=== PATIENT | male | born 1945 | race African-American/Black ===

== ENCOUNTER 2020-06-07 20:43 | Inpatient (IN) | payer BC, MEDICARE, OTHER ==
[2020-06-07] MEDS ORDERED: Acetaminophen 500 MG TAB ONE (21:01)
[2020-06-07 21:23] LABS: #Eosinphils 0.1 thou/uL (0.0-0.7); #Monocytes 0.8 thou/uL (0.11-0.59); #Neutrophils 8.5 thou/uL (1.40-6.50); %Basophils 0.4 % (0.0-1.0); %Eosinophils 0.6 % (0.0-10.0); %Lymphocytes 9.6 % (21.0-51.0); %Monocytes 7.5 % (0.0-10.0); %Neutrophils 81.9 % (42.0-75.0); Hemoglobin 13.9 g/dL (14.0-18.0); Mean Corpuscular HGB CONC 34.7 g/dL (32.0-36.0); Mean Corpuscular Hemoglobin 30.4 pg (27.0-31.0); Mean Corpuscular Volume 87.7 fL (78.0-98.0); Mean Platelet Volume 8.7 fL (7.4-10.4); Platelet Count 178 thou/uL (130-400); RBC Distribution Width 11.3 % (11.5-14.5); Red Blood Cell (RBC) Count 4.59 mill/uL (4.70-6.10); White Blood Cell (WBC) Count 10.3 thou/uL (4.8-10.8)
--- NOTE | 2020-06-07 21:25 | RAD ---
XR Chest 1 View Portable History: Fever Comparison: None. Findings: Lungs are hypoinflated with vascular crowding of spurious enlargement of the cardiac silhou ette. No pneumothorax. No effusion. No acute osseous abnormality. Impression: Lung hypoinflation with crowding of the pulmonary vasculature. If clinically warranted, r epeat examination with full inspiratory effort recommended.
[2020-06-07 21:43] LABS: ALT (SGPT) 26 U/L (8-55); AST (SGOT) 19 U/L (5-34); Albumin 3.7 g/dL (3.4-4.8); Alkaline Phosphatase 57 U/L (40-110); Anion Gap 13 mmol/L (10-20); BUN (Urea Nitrogen) 22 mg/dL (8.4-25.7); Bilirubin, Total 0.7 mg/dL (0.2-1.2); Calc. Creatinine Clearance 0 mL/min (70-130); Calcium 8.4 mg/dL (7.8-10.44); Carbon Dioxide 24 mmol/L (23-31); Chloride 101 mmol/L (98-107); Estimated GFR-MDRD 72; Globulin 3.5 g/dL (2.4-3.5); Glucose 207 mg/dL (83-110); Potassium 4.4 mmol/L (3.5-5.1); Protein, Total 7.2 g/dL (5.8-8.1); Sodium 134 mmol/L (136-145)
[2020-06-07 22:03] LABS: Bacteria/HPF 1+ HPF (None Seen); Bilirubin Negative (Negative); Blood, Urine 1+ (Negative); Clarity Turbid (Clear); Glucose, Urine (Dipstick) 300 mg/dL (Negative); Ketone, Urine Negative (Negative); Leukocyte 500 Leu/uL (Negative); Nitrite Negative (Negative); Protein, Urine (Dipstick) 300 mg/dL (Neg-Trace); Specific Gravity, Urine 1.025 (1.002-1.036); Urobilinogen Normal mg/dL (Less than 2); WBC/HPF 21-50 HPF (0-3)
[2020-06-07] MEDS ORDERED: cefTRIAXone\\ROCEPHIN 2 GM VIAL ONE (23:05)
[2020-06-08] MEDS ORDERED: Dextrose 5% in Water 1,000 ML IV PRN (00:39)
[2020-06-08] MEDS ORDERED: Dextrose 50% Abboject 50 ML SYRINGE SLOW IVP PRN (00:39)
[2020-06-08] MEDS ORDERED: Ondansetron PF 4 MG/2 ML Vial IVP PRN (00:45)
[2020-06-08] MEDS ORDERED: Ondansetron ODT 4 MG TAB SL PRN (00:45)
[2020-06-08] MEDS ORDERED: Acetaminophen 325 MG TAB PO PRN (00:45)
--- NOTE | 2020-06-08 00:46 | PDOC.HHP ---
Hospitalist HPI - History of Present Illness weakness chills History of Present Illness: Case of an 75y/o male with pmhx of DM, htn and hypercholesterolemia who present to hospital due to chills and weaknes. patient reports that he was on his usual state of health until yesterday when he started with generalize weakness, chills fever and anorexia for which he was brought to hospital for evaluation. patient denies diarrhea cough or dysuria. at the ED patient was evaluated and found to have a uti for which hospitalist was called for further evaluation and management. Hospitalist ROS - Review of Systems All other systems reviewed; all pertinent +/- noted in HPI/Subj Hospitalist History - Past Surgical History Past Surgical History: reports: no pertinent history - Family History Family History: reports: cancer, diabetes mellitus, hypertension - Social History Smoking Status: Never smoker Alcohol: reports: None Drugs: reports: none Living Situation: With Family - Exam General Appearance: NAD, awake alert, ill appearing Eye: PERRL, anicteric sclera ENT: normocephalic atraumatic, no oropharyngeal lesions Neck: supple, symmetric, no JVD, no thyromegaly Heart: RRR, no murmur, no gallops Respiratory: CTAB, no wheezes, no rales, no ronchi Gastrointestinal: soft, non-distended, normal bowel sounds Gastrointestinal - other findings: suprapubic tenderness Extremities: no cyanosis, no clubbing, no edema Skin: normal turgor, no lesions, no rashes Neurological: cranial nerve grossly intact, normal sensation to touch, no weakness Musculoskeletal: normal tone, normal strength, no muscle wasting Psychiatric: normal affect, normal behavior, A&O x 3, oriented to person Hospitalist Results - Labs Result Diagrams: 06/07/20 21:14 06/07/20 21:14 Lab results: WBC 10.3 thou/uL (4.8-10.8) 06/07/20 21:14 Hgb 13.9 g/dL (14.0-18.0) L 06/07/20 21:14 Hct 40.2 % (42.0-52.0) L 06/07/20 21:14 MCV 87.7 fL (78.0-98.0) 06/07/20 21:14 Plt Count 178 thou/uL (130-400) 06/07/20 21:14 Neutrophils % 81.9 % (42.0-75.0) H 06/07/20 21:14 Sodium 134 mmol/L (136-145) L 06/07/20 21:14 Potassium 4.4 mmol/L (3.5-5.1) 06/07/20 21:14 Chloride 101 mmol/L (98-107) 06/07/20 21:14 Carbon Dioxide 24 mmol/L (23-31) 06/07/20 21:14 BUN 22 mg/dL (8.4-25.7) 06/07/20 21:14 Creatinine 1.02 mg/dL (0.7-1.3) 06/07/20 21:14 Glucose 207 mg/dL (83-110) H 06/07/20 21:14 Lactic Acid 1.6 mmol/L (0.5-2.2) 06/07/20 21:14 Calcium 8.4 mg/dL (7.8-10.44) 06/07/20 21:14 Total Bilirubin 0.7 mg/dL (0.2-1.2) 06/07/20 21:14 AST 19 U/L (5-34) 06/07/20 21:14 ALT 26 U/L (8-55) 06/07/20 21:14 Alkaline Phosphatase 57 U/L (40-110) 06/07/20 21:14 Serum Total Protein 7.2 g/dL (5.8-8.1) 06/07/20 21:14 Albumin 3.7 g/dL (3.4-4.8) 06/07/20 21:14 Urine Ketones Negative mg/dL (Negative) 06/07/20 21:45 Urine Blood 1+ (Negative) A 06/07/20 21:45 Urine Nitrite Negative (Negative) 06/07/20 21:45 Ur Leukocyte Esterase 500 Amor/uL (Negative) A 06/07/20 21:45 Urine RBC 4-6 HPF (0-3) A 06/07/20 21:45 Urine WBC 21-50 HPF (0-3) A 06/07/20 21:45 Ur Squamous Epith Cells 7-10 HPF (0-3) A 06/07/20 21:45 Urine Bacteria 1+ HPF (None Seen) A 06/07/20 21:45 - Radiology Interpretation Chest x-ray Status: image reviewed by me, report reviewed by me Additional Comment: XR Chest 1 View Portable History: Fever Comparison: None. Findings: Lungs are hypoinflated with vascular crowding of spurious enlargement of the cardiac silhou ette. No pneumothorax. No effusion. No acute osseous abnormality. Impression: Lung hypoinflation with crowding of the pulmonary vasculature. If clinically warranted, r epeat examination with full inspiratory effort recommended. Hospitalist H&P A/P - Problem (1) UTI (urinary tract infection) Status: Acute (2) HTN (hypertension) Code(s): I10 - ESSENTIAL (PRIMARY) HYPERTENSION Status: Acute (3) Diabetes Code(s): E11.9 - TYPE 2 DIABETES MELLITUS WITHOUT COMPLICATIONS Status: Acute (4) Hypercholesterolemia Code(s): E78.00 - PURE HYPERCHOLESTEROLEMIA, UNSPECIFIED Status: Acute - Plan Plan: 75y/o male with the stated pmhx who presents with uti uti - fever, chills, u/a consistent with uti, L shift - started ivfs - rocephin - f/u u/c + b/c htn - continue home meds diabetes - ss+acc - lantus hs hypercholesterolemia - continue statin
[2020-06-08] MEDS: Sodium Chloride 0.9% 1,000 ML IV SCH ×4 (01:00→20:01)
[2020-06-08 01:42] VITALS: BMI 30.2
[2020-06-08 05:54] LABS: #Lymphocytes 1.2 thou/uL (1.20-3.40); #Monocytes 0.8 thou/uL (0.11-0.59); %Basophils 0.1 % (0.0-1.0); %Eosinophils 0.2 % (0.0-10.0); %Neutrophils 77.8 % (42.0-75.0); Hemoglobin 13.3 g/dL (14.0-18.0); Mean Corpuscular HGB CONC 35.3 g/dL (32.0-36.0); Mean Corpuscular Hemoglobin 30.3 pg (27.0-31.0); Mean Corpuscular Volume 85.9 fL (78.0-98.0); Mean Platelet Volume 8.6 fL (7.4-10.4); Platelet Count 165 thou/uL (130-400); RBC Distribution Width 11.3 % (11.5-14.5); Red Blood Cell (RBC) Count 4.38 mill/uL (4.70-6.10)
[2020-06-08 06:24] LABS: ALT (SGPT) 23 U/L (8-55); AST (SGOT) 16 U/L (5-34); Albumin 3.3 g/dL (3.4-4.8); Alkaline Phosphatase 48 U/L (40-110); Anion Gap 11 mmol/L (10-20); BUN (Urea Nitrogen) 16 mg/dL (8.4-25.7); Bilirubin, Total 0.6 mg/dL (0.2-1.2); Calc. Creatinine Clearance 105 mL/min (70-130); Calcium 8.1 mg/dL (7.8-10.44); Carbon Dioxide 24 mmol/L (23-31); Estimated GFR-MDRD Greater than 90; Globulin 3.2 g/dL (2.4-3.5); Glucose 86 mg/dL (83-110); Protein, Total 6.5 g/dL (5.8-8.1)
[2020-06-08] MEDS: Acetaminophen 325 MG TAB PO PRN ×2 (06:36→19:59)
[2020-06-08 06:53] LABS: Chloride 103 mmol/L (98-107); Potassium 3.6 mmol/L (3.5-5.1); Sodium 134 mmol/L (136-145)
[2020-06-08 07:36] LABS: CRP (Inflammatory) 2.79 mg/dL (= or < 0.5); Magnesium 1.7 mg/dL (1.6-2.6)
[2020-06-08] MEDS: Lisinopril 20 MG TAB PO SCH (08:37)
[2020-06-08] MEDS: Enoxaparin Sodium 40 MG/0.4 ML SYRINGE SC SCH (08:38)
[2020-06-08] MEDS ORDERED: Magnesium 2 GM/50 ML 2 GM in Premix Bag 1 BAG IVPB SCH (09:45)
--- NOTE | 2020-06-08 11:28 | CT ---
CT abdomen and pelvis noncontrast HISTORY: Flank pain. FINDINGS: Each renal collecting system, ureter, and urinary bladder are decompressed. A 0.2 cm calcul us is present within a nondilated calyx at the superior pole left kidney. Prominent degenerative changes throughout the lumbar spine. S shaped rotatory scoliotic curvature. Th ere is calcification throughout the arterial structures. Lack of IV contrast limits evaluation of the soft tissues. No evidence of bowel obstruction or inflam mation. Small amount of abdominal fat protrudes into an umbilical hernia that does not contain bowel. Small pockets of gas within the right abdominal subcutaneous tissues are likely related to rec ent injection. IMPRESSION : Tiny nonobstructing left renal calculus. Atherosclerosis.
[2020-06-08] MEDS: HumaLOG 300 UNITS/3 ML VIAL SC PRN (11:49)
[2020-06-08 16:15] LABS: SARS-CoV-2 MS2 Positive; SARS-CoV-2 N Gene Negative; SARS-CoV-2 S Gene Negative; SARS-CoV-2 by NAA Not Detected (NotDetected); SARS-CoV-2 orf1ab Negative
[2020-06-08] MEDS: Atorvastatin Calcium 10 MG TAB PO SCH (19:59)
[2020-06-08] MEDS ORDERED: Insulin Glargine 50 UNITS in Pre-Filled Syringe 1 EACH SC SCH (21:00)
[2020-06-08] MEDS ORDERED: Insulin Glargine 20 UNITS in Pre-Filled Syringe 1 EACH SC SCH (21:00)
[2020-06-09] MEDS: cefTRIAXone\\ROCEPHIN 2 GM in Sodium Chloride 0.9% 100 ML IVPB SCH (00:57)
[2020-06-09 06:21] LABS: #Eosinphils 0.2 thou/uL (0.0-0.7); #Lymphocytes 1.7 thou/uL (1.20-3.40); #Monocytes 0.7 thou/uL (0.11-0.59); #Neutrophils 3.2 thou/uL (1.40-6.50); %Basophils 0.7 % (0.0-1.0); %Eosinophils 3.3 % (0.0-10.0); %Lymphocytes 29.6 % (21.0-51.0); %Monocytes 12.4 % (0.0-10.0); %Neutrophils 54.1 % (42.0-75.0); Mean Corpuscular HGB CONC 34.4 g/dL (32.0-36.0); Mean Corpuscular Hemoglobin 30.2 pg (27.0-31.0); Mean Corpuscular Volume 87.8 fL (78.0-98.0); Mean Platelet Volume 8.7 fL (7.4-10.4); Platelet Count 164 thou/uL (130-400); RBC Distribution Width 11.4 % (11.5-14.5); Red Blood Cell (RBC) Count 4.32 mill/uL (4.70-6.10); White Blood Cell (WBC) Count 5.9 thou/uL (4.8-10.8)
[2020-06-09 06:41] LABS: ALT (SGPT) 21 U/L (8-55); AST (SGOT) 19 U/L (5-34); Albumin 3.3 g/dL (3.4-4.8); Alkaline Phosphatase 50 U/L (40-110); Anion Gap 10 mmol/L (10-20); BUN (Urea Nitrogen) 11 mg/dL (8.4-25.7); Bilirubin, Total 0.4 mg/dL (0.2-1.2); Calc. Creatinine Clearance 97 mL/min (70-130); Calcium 7.9 mg/dL (7.8-10.44); Carbon Dioxide 27 mmol/L (23-31); Chloride 105 mmol/L (98-107); Estimated GFR-MDRD Greater than 90; Globulin 3.3 g/dL (2.4-3.5); Glucose 145 mg/dL (83-110); Potassium 3.9 mmol/L (3.5-5.1); Protein, Total 6.6 g/dL (5.8-8.1); Sodium 138 mmol/L (136-145)
[2020-06-09] MEDS: Lisinopril 20 MG TAB PO SCH (08:35)
[2020-06-09] MEDS: Enoxaparin Sodium 40 MG/0.4 ML SYRINGE SC SCH (08:37)
[2020-06-09] MEDS: Saccharomyces boulardii 250 MG CAP PO SCH (08:37)
[2020-06-09] MEDS: HumaLOG 300 UNITS/3 ML VIAL SC PRN ×2 (11:57→16:09)
--- NOTE | 2020-06-09 14:30 | PDOC.HOSPP ---
- Subjective Encounter Date: 06/09/20 Encounter Time: 12:00 Subjective: Patient seen and examined for encephalopathy due to UTI. Mentation improved. Denies any fever, chills or abdominal pain. Had post void residual over 300 earlier today that improved with repeated voiding. - Objective Vital Signs & Weight: Vital Signs (12 hours) Temp Pulse Resp BP BP BP Pulse Ox 06/09/20 11:30 98.5 F 68 16 116/84 96 06/09/20 08:35 165/80 H 06/09/20 08:05 98.3 F 69 20 157/67 H 98 06/09/20 06:10 162/66 H 06/09/20 05:03 98.0 F 67 18 162/74 H 96 Weight Admit Weight 193 lb 4 oz Weight 193 lb 4 oz I&O: 06/08/20 06/09/20 06/10/20 06:59 06:59 06:59 Intake Total 1100 1100 Output Total 1575 Balance 1100 -475 Result Diagrams: 06/09/20 05:46 06/09/20 05:46 Additional Labs: 06/07/20 21:14: Sodium 134 L, Albumin/Globulin Ratio 1.1 L 06/07/20 21:14: RBC 4.59 L, Hgb 13.9 L, Hct 40.2 L, RDW 11.3 L, Neutrophils % 81.9 H, Lymphocytes % 9.6 L, Neutrophils # 8.5 H, Lymphocytes # 1.0 L, Monocytes # 0.8 H 06/07/20 21:45: Urine Clarity Turbid A, Urine Protein 300 A, Urine Blood 1+ A, Ur Leukocyte Esterase 500 A, Urine RBC 4-6 A, Urine WBC 21-50 A, Ur Squamous Epith Cells 7-10 A, Urine Bacteria 1+ A 06/08/20 05:33: Sodium 134 L, Albumin 3.3 L, Albumin/Globulin Ratio 1.0 L 06/08/20 05:33: RBC 4.38 L, Hgb 13.3 L, Hct 37.6 L, RDW 11.3 L, Neutrophils % 77.8 H, Lymphocytes % 13.0 L, Neutrophils # 7.0 H, Monocytes # 0.8 H 06/08/20 05:33: C-Reactive Protein 2.79 H 06/09/20 05:46: RBC 4.32 L, Hgb 13.0 L, Hct 37.9 L, RDW 11.4 L, Monocytes % 12.4 H, Monocytes # 0.7 H 06/09/20 05:46: Albumin 3.3 L, Albumin/Globulin Ratio 1.0 L Microbiology - Entire Visit 06/07/20 21:45 Urine voided Urine Culture - Final Beta-hemolytic Streptococcus 06/07/20 21:13 Venous blood - Right Arm Blood Culture - Preliminary NO GROWTH AT 48 HOURS 06/07/20 21:13 Venous blood - Right Arm Blood Culture - Preliminary NO GROWTH AT 48 HOURS Radiology Reviewed by me: Yes (CT abdomenno obstructive uropathy) Hospitalist ROS - Review of Systems Respiratory: denies: cough, dry, shortness of breath, hemoptysis, SOB with excertion, pleuritic pain, sputum, wheezing, other Cardiovascular: denies: chest pain, palpitations, orthopnea, paroxysmal noc. dyspnea, edema, light headedness, other Gastrointestinal: denies: nausea, vomiting, abdominal pain, diarrhea, co nstipation, melena, hematochezia, other All other systems reviewed; all pertinent +/- noted in HPI/Subj - Medication Medications: Active Medications Generic Name Dose Route Start Last Admin Trade Name Freq PRN Reason Stop Dose Admin Acetaminophen 650 mg 06/08/20 00:39 06/08/20 19:59 Acetaminophen 325 Mg Tab PO 650 mg Q4H PRN Administration Headache/Fever/Mild Pain (1-3) Atorvastatin Calcium 10 mg 06/08/20 21:00 06/08/20 19:59 Atorvastatin Calcium 10 Mg Tab PO 10 mg HS LETY Administration Enoxaparin Sodium 40 mg 06/08/20 09:00 06/09/20 08:37 Enoxaparin Sodium 40 Mg/0.4 Ml Syringe SC 40 mg 0900 LETY Administration Sodium Chloride 1,000 mls @ 50 mls/hr 06/08/20 00:45 06/08/20 20:01 Normal Saline 0.9% IV Not Given .Q20H LETY Ceftriaxone Sodium 2 gm/ 100 mls @ 200 mls/hr 06/08/20 23:00 06/09/20 00:57 Sodium Chloride IVPB 100 mls 2300 LETY Administration Insulin Human Lispro 0 units 06/08/20 00:39 06/09/20 11:57 Humalog 300 Units/3 Ml Vial SC 2 unit .MILD SLIDING SCALE PRN Administration Mild Correctional Scale Lisinopril 20 mg 06/08/20 09:00 06/09/20 08:35 Lisinopril 20 Mg Tab PO 20 mg DAILY LETY Administration Saccharomyces Boulardii 250 mg 06/09/20 09:00 06/09/20 08:37 Saccharomyces Boulardii 250 Mg Cap PO 250 mg DAILY LETY Administration - Exam General Appearance: NAD Neck: supple, no JVD Heart: RRR, no gallops, no rubs, normal peripheral pulses Respiratory: no wheezes, no rales, no ronchi, normal chest expansion Gastrointestinal: soft, non-tender, non-distended, normal bowel sounds Extremities: no cyanosis, no clubbing Skin: normal turgor, no lesions Neurological: no new deficit Psychiatric: normal affect, A&O x 3 Hosp A/P - Plan DVT proph w/SCDs #Toxic metabolic encephalopathy secondary to UTIPOAprobably secondary to urinary retention. Will continue IV ceftriaxone. Neutrophilia improving. U rology evaluation as outpatient is recommended. Await final urine culture. Will discuss with infectious disease. CT abdomen negative for obstructive uropathy. #Obesity with a BMI of 30.3lifestyle modification emphasized. #Hypertensionwe will continue lisinopril. IV fluid will be discontinued. #Hyperlipidemiacontinue statins #Diabetes mellitus type 2. Patient was hypoglycemic today with blood sugars of 67. He received 20 units of Lantus last night. Please note that he takes 50 units of Lantus nightly. Will hold Lantus for now. #Hypokalemia/hypomagnesemia/hyponatremiawe will replace #Chronic anemia probably due to nutritional deficiencyoutpatient follow-up recommended. #Nonobstructing renal calculi Probably discharge in 24 to 48 hours if cultures are available.
[2020-06-09] MEDS ORDERED: Magnesium 2 GM/50 ML 2 GM in Premix Bag 1 BAG IVPB SCH (14:45)
--- NOTE | 2020-06-09 16:34 | CON ---
DATE OF CONSULTATION: 06/09/2020 REASON FOR CONSULTATION: Fever. HISTORY OF PRESENT ILLNESS: A 75-year-old with history of hypertension and type 2 diabetes, who was in his usual state until Tuesday when he developed chills and fever up to 103. He did not have any other symptoms. The only thing that was close to a symptom was a perceived urgency to urinate, but he did not have any dysuria. He denied any headaches. No sore throat, odynophagia, or dysphagia. No vomiting, hematemesis, or melena. No cough or sputum production or chest pain. No shortness of breath. No abdominal pain or back pain. No joint symptoms. No skin disorder. MEDICAL HISTORY: 1. Type 2 diabetes. 2. Hypertension. 3. Neuropathy. SOCIAL HISTORY: Retired. Lives in the area. Never smoker. He used to work building cabinets and windows. ALLERGIES: HE HAS NO KNOWN DRUG ALLERGIES. MEDICATIONS: 1. Zocor. 2. Quinapril. 3. Clonazepam. 4. Combination diabetes medication. Currently, he is receiving Rocephin in addition to the above as well as enoxaparin. FAMILY HISTORY: Includes diabetes. PHYSICAL EXAMINATION: VITAL SIGNS: His T-max 102 on arrival and he seems to be defervescing steadily since admission, BP 116/84, heart rate 68, respiratory rate 16, and O2 saturation 96 on room air. GENERAL: He does appear in distress, sitting in the bed when I arrived. He is awake and oriented. in the room with him. SKIN: A few areas of stasis dermatitis in the lower extremities, but no cellulitis. His feet are okay. There is without any wounds noted. No lymphadenopathy. HEENT: Ocular movements conjugate. Sclerae white. Pupils are equal. Conjunctivae normal. Oral cavity with a few missing teeth, remainder ones with some decay and gums are in pretty good shape. Oral mucosa normal. NECK: Supple. No jugular vein distention. LUNGS: With faint inspiratory crackles, right and left bases. HEART: S1 and S2. Regular rate. No S3 or S4. ABDOMEN: Soft, not distended or tender. No ascites. Question of bladder distention. EXTREMITIES: No joint inflammatory activity. Moves extremities equally. NEUROLOGIC: Nonfocal including cognitive function. LABORATORY DATA: White cell count started at 10.3, down to 5.9; hemoglobin 13.9 and 13; platelets are 178; neutrophil percentage 81%, down to 54 now after treatment. Chemistry with normal chemistry including liver panel except for hyperglycemia, which is mild. Albumin was 3.3, which is down from admission as expected. Urinalysis was very abnormal with 21 to 50 wbc's, 500 leukocyte esterase, 300 protein. COVID was not detected. The patient had an abdomen and pelvis CT, which showed a tiny nonobstructing left renal calculus, this was a stone protocol study without contrast. The bladder appeared decompressed. Bowel appeared okay. Chest x-ray with hypoinflation. ASSESSMENT: 1. Type 2 diabetes. 2. Hypertension. 3. New onset of fever of unknown primary site with abnormal urinalysis. 4. Some faint findings in the chest x-ray. 5. Abnormal lung examination. DISCUSSION: The most likely scenario here is an invasive UTI. The lung findings are not correlated with evidence of infiltrate on CT scan, so it seems like Rocephin is working its way and urine culture preliminary results indicate mixed culture. The blood culture thus far no growth, but I would be surprised if turns positive right tomorrow. We will wait for the final results. Hopefully, we will be able to transition to oral therapy. Does not appear that he is retaining urine, but evidently the prostate would be a one of the concerns here and eventually will need a workup of his prostate gland with PSA and rectal exam, but that can be done in the outpatient setting. I do not see evidence of an alternate site at this moment. Job ID: [id number]
[2020-06-09] MEDS ORDERED: Potassium Chloride 20 MEQ TAB PO SCH (17:00)
[2020-06-09] MEDS: Atorvastatin Calcium 10 MG TAB PO SCH (20:43)
[2020-06-10] MEDS: cefTRIAXone\\ROCEPHIN 2 GM in Sodium Chloride 0.9% 100 ML IVPB SCH ×2 (00:45→21:50)
[2020-06-10] MEDS: Saccharomyces boulardii 250 MG CAP PO SCH (08:59)
[2020-06-10] MEDS: Enoxaparin Sodium 40 MG/0.4 ML SYRINGE SC SCH (08:59)
[2020-06-10] MEDS: Lisinopril 20 MG TAB PO SCH (09:00)
[2020-06-10] MEDS: Insulin Glargine 10 UNITS in Pre-Filled Syringe 1 EACH SC SCH (09:01)
[2020-06-10] MEDS: clonazePAM 1 MG TAB PO PRN ×2 (11:00→21:48)
[2020-06-10] MEDS: HumaLOG 300 UNITS/3 ML VIAL SC PRN ×2 (11:45→16:17)
[2020-06-10] MEDS ORDERED: Amlodipine 5 MG TAB PO SCH (15:45)
[2020-06-10] MEDS ORDERED: cloNIDine 0.1 MG TAB PO PRN (15:51)
--- NOTE | 2020-06-10 17:20 | PDOC.HOSPP ---
- Subjective Encounter Date: 06/10/20 Encounter Time: 09:30 Subjective: Patient seen and examined for sepsis due to UTI. Feels generally weak and fatigued. Did not sleep well last night. Anxious. No chest pain, fever, nausea or dysuria. - Objective Vital Signs & Weight: Vital Signs (12 hours) Temp Pulse Resp BP BP BP Pulse Ox 06/10/20 16:17 65 160/69 H 06/10/20 15:52 97.8 F 63 20 172/83 H 96 06/10/20 11:50 69 152/72 H 06/10/20 10:55 68 204/95 H 06/10/20 09:33 97 06/10/20 09:00 190/65 H 06/10/20 07:16 98.0 F 62 20 176/68 H 97 Weight Admit Weight 193 lb 4 oz Weight 193 lb 4 oz I&O: 06/09/20 06/10/20 06/11/20 06:59 06:59 06:59 Intake Total 1100 2350 360 Output Total 1575 2100 Balance -475 250 360 Result Diagrams: 06/09/20 05:46 06/09/20 05:46 Additional Labs: 06/09/20 05:46: RBC 4.32 L, Hgb 13.0 L, Hct 37.9 L, RDW 11.4 L, Monocytes % 12.4 H, Monocytes # 0.7 H 06/09/20 05:46: Albumin 3.3 L, Albumin/Globulin Ratio 1.0 L Microbiology - Entire Visit 06/07/20 21:13 Venous blood - Right Arm Blood Culture - Preliminary Gram Negative Ed[place] 06/07/20 21:45 Urine voided Urine Culture - Final Beta-hemolytic Streptococcus 06/07/20 21:13 Venous blood - Right Arm Blood Culture - Preliminary NO GROWTH AT 48 HOURS Hospitalist ROS - Review of Systems Respiratory: denies: cough, dry, shortness of breath, hemoptysis, SOB with excertion, pleuritic pain, sputum, wheezing, other Cardiovascular: denies: chest pain, palpitations, orthopnea, paroxysmal noc. dyspnea, edema, light headedness, other - Medication Medications: Active Medications Generic Name Dose Route Start Last Admin Trade Name Freq PRN Reason Stop Dose Admin Acetaminophen 650 mg 06/08/20 00:39 06/08/20 19:59 Acetaminophen 325 Mg Tab PO 650 mg Q4H PRN Administration Headache/Fever/Mild Pain (1-3) Amlodipine Besylate 5 mg 06/10/20 15:45 06/10/20 16:17 Amlodipine 5 Mg Tab PO 06/10/20 17:45 5 mg NOW LETY Administration Atorvastatin Calcium 10 mg 06/08/20 21:00 06/09/20 20:43 Atorvastatin Calcium 10 Mg Tab PO 10 mg HS LETY Administration Clonazepam 1 mg 06/08/20 01:26 06/10/20 11:00 Clonazepam 1 Mg Tab PO 1 mg BIDPRN PRN Administration anxiety Enoxaparin Sodium 40 mg 06/08/20 09:00 06/10/20 08:59 Enoxaparin Sodium 40 Mg/0.4 Ml Syringe SC 40 mg 0900 LETY Administration Ceftriaxone Sodium 2 gm/ 100 mls @ 200 mls/hr 06/08/20 23:00 06/10/20 00:45 Sodium Chloride IVPB 100 mls 2300 LETY Administration Insulin Glargine 10 units/ 0.1 mls @ 0 mls/hr 06/10/20 09:00 06/10/20 09:01 Miscellaneous Medication SC 0.1 mls QAM LETY Administration Insulin Human Lispro 0 units 06/08/20 00:39 06/10/20 16:17 Humalog 300 Units/3 Ml Vial SC 3 unit .MILD SLIDING SCALE PRN Administration Mild Correctional Scale Lisinopril 20 mg 06/08/20 09:00 06/10/20 09:00 Lisinopril 20 Mg Tab PO 20 mg DAILY LETY Administration Saccharomyces Boulardii 250 mg 06/09/20 09:00 06/10/20 08:59 Saccharomyces Boulardii 250 Mg Cap PO 250 mg DAILY LTEY Administration - Exam General Appearance: ill appearing Heart: RRR, no gallops Respiratory: no wheezes, no ronchi Gastrointestinal: non-tender, non-distended, normal bowel sounds Extremities: no cyanosis, no clubbing Neurological: no new deficit Psychiatric: normal affect, A&O x 3 Hosp A/P - Plan 75-year-old male with diabetes mellitus type 2, hypertension and hyperlipidemia presented to the hospital on 06/08 with generalized weakness with chills. His work-up was consistent with urinary tract infection. Post void residuals were elevated. However patient is able to empty his bladder without any need of catheterization. Left shift is gradually improving. Urine culturebeta- hemolytic Streptococcus. Blood culture 1 of 2 gram-negative edmar. Started on ceftriaxone on 06/08. CT abdomen negative for obstructive uropathy. Patient was evaluated by infectious disease #Toxic metabolic encephalopathymultifactorialimproving #Urinary tract infection probably secondary to urinary retentionwe will continue ceftriaxone 2 g daily. Await final sensitivities from blood culture. Urology evaluation as outpatient #Obesity with a BMI of 30.3lifestyle modification emphasized. #Hypertensionuncontrolled. Add amlodipine. Continue current dose of lisinopril. #Hyperlipidemiacontinue statins #Diabetes mellitus type 2.Continue 10 units Lantus daily due to episodes of hypoglycemia this admission. Please note that patient takes 50 units of Lantus daily at home #Hypokalemia/hypomagnesemia/hyponatremiareplaced #Chronic anemia probably due to nutritional deficiencyoutpatient follow-up recommended. #Nonobstructing renal calculiprimary care physician to follow #DVT prophylaxiscontinue Lovenox 40 mg daily #Discharge planningawait blood cultures. Will discuss with infectious disease.
[2020-06-10] MEDS: Atorvastatin Calcium 10 MG TAB PO SCH (21:45)
[2020-06-11 06:12] LABS: #Eosinphils 0.3 thou/uL (0.0-0.7); #Lymphocytes 1.8 thou/uL (1.20-3.40); #Monocytes 0.5 thou/uL (0.11-0.59); #Neutrophils 2.5 thou/uL (1.40-6.50); %Basophils 0.4 % (0.0-1.0); %Eosinophils 5.2 % (0.0-10.0); %Lymphocytes 35.7 % (21.0-51.0); %Monocytes 10.6 % (0.0-10.0); %Neutrophils 48.2 % (42.0-75.0); Hemoglobin 13.5 g/dL (14.0-18.0); Mean Corpuscular HGB CONC 34.8 g/dL (32.0-36.0); Mean Corpuscular Volume 86.1 fL (78.0-98.0); Mean Platelet Volume 8.7 fL (7.4-10.4); Platelet Count 206 thou/uL (130-400); RBC Distribution Width 11.2 % (11.5-14.5); Red Blood Cell (RBC) Count 4.52 mill/uL (4.70-6.10); White Blood Cell (WBC) Count 5.1 thou/uL (4.8-10.8)
[2020-06-11 06:37] LABS: ALT (SGPT) 36 U/L (8-55); AST (SGOT) 32 U/L (5-34); Albumin 3.5 g/dL (3.4-4.8); Alkaline Phosphatase 54 U/L (40-110); Anion Gap 11 mmol/L (10-20); BUN (Urea Nitrogen) 10 mg/dL (8.4-25.7); Bilirubin, Total 0.5 mg/dL (0.2-1.2); Calc. Creatinine Clearance 102 mL/min (70-130); Calcium 8.8 mg/dL (7.8-10.44); Carbon Dioxide 25 mmol/L (23-31); Chloride 105 mmol/L (98-107); Estimated GFR-MDRD Greater than 90; Globulin 3.6 g/dL (2.4-3.5); Glucose 180 mg/dL (83-110); Potassium 4.2 mmol/L (3.5-5.1); Protein, Total 7.1 g/dL (5.8-8.1); Sodium 137 mmol/L (136-145)
[2020-06-11] MEDS: Lisinopril 20 MG TAB PO SCH (08:48)
[2020-06-11] MEDS: Amlodipine 5 MG TAB PO SCH (08:48)
[2020-06-11] MEDS: Enoxaparin Sodium 40 MG/0.4 ML SYRINGE SC SCH (08:49)
[2020-06-11] MEDS: Saccharomyces boulardii 250 MG CAP PO SCH (08:49)
[2020-06-11] MEDS: Insulin Glargine 10 UNITS in Pre-Filled Syringe 1 EACH SC SCH (08:49)
--- NOTE | 2020-06-11 11:50 | PQF ---
CLINICAL DOCUMENTATION CLARIFICATION FORM: Dear Dr. HITESH RAGLAND Date: 06-11-20 Please exercise your independent, professional judgment in responding to the clarification form. Clinical indicators are provided on the bottom of this form for your review. Diagnosis: SEPSIS Present on Admission (POA): [x ] Yes [ ] No [ ] Unable to determine For continuity of documentation, please document condition throughout progress notes and discharge summary. Thank You. To be completed by CDI/Coding staff for physician review: CLINICAL INDICATORS - SIGNS / SYMPTOMS / LABS/ RESULTS AND LOCATION IN MR: PN DR. RAGLAND 06-10-20: PATIENT SEEN AND EXAMINED FOR ENCEPHALOPATHY DUE TO UTI NEUTROPHILS: 06-07-20: 81.9 06-08-20: 77.8 CRP: 06-08-20: 2.79 TEMP: 06-08-20: 100.4, 100.4, 102.0, 101.7 RISK FACTORS / RSULTS AND LOCATION IN MR: ER DX: 06-07-20: URINARY TRACT INFECTION, FEVER, WEAKNESS TREATMENT / RSULTS AND LOCATION IN MR: ER NOTES 06-08-20: CEFTRIAXONE IV, NS IVF CDS Signature: Annelise Garcia Phone #: [phone] Date: 06-11-20 This is a permanent part of the Medical Record [facility]
--- NOTE | 2020-06-11 15:53 | PRG ---
DATE OF SERVICE: 06/11/2020 SUBJECTIVE: Mr. Gale is doing better, although still a little weak. No nausea. No cough. No chest pain. No abdominal pain. Voiding without difficulty. No diarrhea. He has been afebrile since day before yesterday. OBJECTIVE: VITAL SIGNS: Blood pressure 150/70, heart rate 71, O2 saturation 96%. SKIN: Normal. LUNGS: Clear. HEART: S1 and S2, regular rate. ABDOMEN: Soft, not distended. EXTREMITIES: No joint inflammatory activity. LABORATORY DATA: White cell count is 5.1, hemoglobin 13.5, platelets 206, normal differential. Creatinine 0.8. Liver profile normal. Albumin 3.5. Urinalysis has been discussed. Microbiology; now, we have a positive blood culture 1/2 sets with a gram-negative jennifer yet to be identified, susceptibility tested. Urine culture with beta-hemolytic strep. ASSESSMENT AND DISCUSSION: Type 2 diabetes, hypertension, fever, abnormal urinalysis, and positive blood culture with a gram-negative jennifer, also an abnormal lung exam. Right now, we will have to wait for identification of the organism. None of the Verigene panel matched the organism, so could be something unusual and may indicate a different underlying process rather than a UTI or could confirm urinary tract infection, so we will wait for that and hopefully discharge him on oral quinolone. Job ID: [id number]
--- NOTE | 2020-06-11 17:16 | PDOC.HOSPP ---
- Subjective Encounter Date: 06/11/20 Encounter Time: 10:30 Subjective: Patient seen and examined for urinary tract infection with bacteremia. Denies any new complaints. No nausea, fever or chills. No dysuria or hematuria reported. - Objective Vital Signs & Weight: Vital Signs (12 hours) Temp Pulse Resp BP BP Pulse Ox 06/11/20 15:36 98.1 F 71 20 163/76 H 96 06/11/20 08:48 71 157/76 H 06/11/20 08:00 96 06/11/20 07:59 97.5 F L 71 16 156/76 H 96 06/11/20 07:29 97.5 F L 71 16 157/76 H 96 Weight Admit Weight 193 lb 4 oz Weight 193 lb 4 oz I&O: 06/10/20 06/11/20 06/12/20 06:59 06:59 06:59 Intake Total 2350 2490 Output Total 2100 800 Balance 250 2490 -800 Result Diagrams: 06/11/20 05:38 06/11/20 05:38 Additional Labs: Accuchecks Abnormal Lab Results - Last 48 hrs 06/11/20 05:38: Globulin 3.6 H, Albumin/Globulin Ratio 1.0 L 06/11/20 05:38: RBC 4.52 L, Hgb 13.5 L, Hct 38.9 L, RDW 11.2 L, Monocytes % 10.6 H Microbiology - Entire Visit 06/07/20 21:13 Venous blood - Right Arm Blood Culture - Preliminary Gram Negative Edmar 06/07/20 21:45 Urine voided Urine Culture - Final Beta-hemolytic Streptococcus 06/07/20 21:13 Venous blood - Right Arm Blood Culture - Preliminary NO GROWTH AT 48 HOURS Hospitalist ROS - Review of Systems Cardiovascular: denies: chest pain, palpitations, orthopnea, paroxysmal noc. dyspnea, edema, light headedness, other Gastrointestinal: denies: nausea, vomiting, abdominal pain, diarrhea, constipation, melena, hematochezia, other - Medication Medications: Active Medications Generic Name Dose Route Start Last Admin Trade Name Freq PRN Reason Stop Dose Admin Acetaminophen 650 mg 06/08/20 00:39 06/08/20 19:59 Acetaminophen 325 Mg Tab PO 650 mg Q4H PRN Administration Headache/Fever/Mild Pain (1-3) Amlodipine Besylate 5 mg 06/11/20 09:00 06/11/20 08:48 Amlodipine 5 Mg Tab PO 5 mg DAILY LETY Administration Atorvastatin Calcium 10 mg 06/08/20 21:00 06/10/20 21:45 Atorvastatin Calcium 10 Mg Tab PO 10 mg HS LETY Administration Clonazepam 1 mg 06/08/20 01:26 06/10/20 21:48 Clonazepam 1 Mg Tab PO 1 mg BIDPRN PRN Administration anxiety Enoxaparin Sodium 40 mg 06/08/20 09:00 06/11/20 08:49 Enoxaparin Sodium 40 Mg/0.4 Ml Syringe SC 40 mg 0900 LETY Administration Ceftriaxone Sodium 2 gm/ 100 mls @ 200 mls/hr 06/08/20 23:00 06/10/20 21:50 Sodium Chloride IVPB 100 mls 2300 LETY Administration Insulin Glargine 10 units/ 0.1 mls @ 0 mls/hr 06/10/20 09:00 06/11/20 08:49 Miscellaneous Medication SC 0.1 mls QAM LETY Administration Insulin Human Lispro 0 units 06/08/20 00:39 06/10/20 16:17 Humalog 300 Units/3 Ml Vial SC 3 unit .MILD SLIDING SCALE PRN Administration Mild Correctional Scale Lisinopril 20 mg 06/08/20 09:00 06/11/20 08:48 Lisinopril 20 Mg Tab PO 20 mg DAILY LETY Administration Saccharomyces Boulardii 250 mg 06/09/20 09:00 06/11/20 08:49 Saccharomyces Boulardii 250 Mg Cap PO 250 mg DAILY LETY Administration - Exam General Appearance: NAD Heart: RRR, no gallops Respiratory: no wheezes, no ronchi Gastrointestinal: non-tender, non-distended, normal bowel sounds Extremities: no cyanosis, no clubbing Neurological: no new deficit Psychiatric: normal affect, A&O x 3 Hosp A/P - Plan plan discussed w/ family, DVT proph w/SCDs 75-year-old male with diabetes mellitus type 2, hypertension and hyperlipidemia presented to the hospital on 06/08 with generalized weakness with chills. His work-up was consistent with urinary tract infection. Post void residuals were elevated. However patient is able to empty his bladder without any need of catheterization. Left shift is gradually improving. Urine culturebeta- hemolytic Streptococcus. Blood culture 1 of 2 gram-negative edmar. Started on ceftriaxone on 06/08. CT abdomen negative for obstructive uropathy. Patient was evaluated by infectious disease. #Toxic metabolic encephalopathymultifactorialimproving Continue to monitor #Sepsis due to urinary tract infection with gram negative bacteremia. probably secondary to urinary retention we will continue ceftriaxone 2 g daily. Await final sensitivities from blood culture. Urology evaluation as outpatient. #Obesity with a BMI of 30.3 lifestyle modification emphasized. #Hypertensionbetter controlled Continue lisinopril with amlodipine #Hyperlipidemiacontinue statins #Diabetes mellitus type 2 with episodes of hypoglycemia this admission- uncontrolled Increase Lantus to 10 units twice daily. (Please note that patient takes 50 units of Lantus daily at home) #Hypokalemia/hypomagnesemia/hyponatremiareplaced Continue to monitor #Chronic anemia probably due to nutritional deficiency outpatient follow-up recommended. #Nonobstructing renal calculi primary care physician to follow #DVT prophylaxis continue Lovenox 40 mg daily #Discharge planning awaiting blood cultures.
[2020-06-11] MEDS: HumaLOG 300 UNITS/3 ML VIAL SC PRN (18:20)
[2020-06-11] MEDS ORDERED: Insulin Glargine 10 UNITS in Pre-Filled Syringe SC SCH (21:00)
[2020-06-11] MEDS: clonazePAM 1 MG TAB PO PRN (21:51)
[2020-06-11] MEDS: Atorvastatin Calcium 10 MG TAB PO SCH (21:51)
[2020-06-11] MEDS: cefTRIAXone\\ROCEPHIN 2 GM in Sodium Chloride 0.9% 100 ML IVPB SCH (21:53)
[2020-06-12] MEDS: Insulin Glargine 10 UNITS in Pre-Filled Syringe 1 EACH SC SCH (09:36)
[2020-06-12] MEDS: Lisinopril 20 MG TAB PO SCH (09:38)
[2020-06-12] MEDS: Enoxaparin Sodium 40 MG/0.4 ML SYRINGE SC SCH (09:38)
[2020-06-12] MEDS: Amlodipine 5 MG TAB PO SCH (09:38)
[2020-06-12] MEDS: Saccharomyces boulardii 250 MG CAP PO SCH (09:41)
[2020-06-12] MEDS: HumaLOG 300 UNITS/3 ML VIAL SC PRN (11:42)
--- NOTE | 2020-06-12 15:12 | PDOC.HOSPP ---
- Subjective Encounter Date: 06/12/20 Encounter Time: 09:30 Subjective: Patient seen and examined for sepsis with bacteremia and UTI. Denies any new complaints. No cough, shortness of breath, dysuria, nausea or fever. - Objective Vital Signs & Weight: Vital Signs (12 hours) Temp Pulse Resp BP BP Pulse Ox 06/12/20 09:38 66 162/75 H 06/12/20 08:00 99 06/12/20 07:36 98.0 F 65 20 165/75 H 99 Weight Admit Weight 193 lb 4 oz Weight 193 lb 4 oz I&O: 06/11/20 06/12/20 06/13/20 06:59 06:59 06:59 Intake Total 2490 850 Output Total 1950 Balance 2490 -1100 Result Diagrams: 06/11/20 05:38 06/11/20 05:38 Additional Labs: Accuchecks 06/12/20 06/12/20 06/11/20 11:34 06:22 20:05 POC Glucose 272 H 173 H 257 H 06/11/20 16:16 POC Glucose 252 H Abnormal Lab Results - Last 48 hrs 06/11/20 05:38: Globulin 3.6 H, Albumin/Globulin Ratio 1.0 L 06/11/20 05:38: RBC 4.52 L, Hgb 13.5 L, Hct 38.9 L, RDW 11.2 L, Monocytes % 10.6 H Microbiology - Entire Visit 06/07/20 21:13 Venous blood - Right Arm Blood Culture - Preliminary Gram Negative Edmar 06/07/20 21:45 Urine voided Urine Culture - Final Beta-hemolytic Streptococcus 06/07/20 21:13 Venous blood - Right Arm Blood Culture - Preliminary NO GROWTH AT 48 HOURS Hospitalist ROS - Review of Systems Respiratory: denies: cough, dry, shortness of breath, hemoptysis, SOB with excertion, pleuritic pain, sputum, wheezing, other Cardiovascular: denies: chest pain, palpitations, orthopnea, paroxysmal noc. dyspnea, edema, light headedness, other - Medication Medications: Active Medications Generic Name Dose Route Start Last Admin Trade Name Freq PRN Reason Stop Dose Admin Acetaminophen 650 mg 06/08/20 00:39 06/08/20 19:59 Acetaminophen 325 Mg Tab PO 650 mg Q4H PRN Administration Headache/Fever/Mild Pain (1-3) Amlodipine Besylate 5 mg 06/11/20 09:00 06/12/20 09:38 Amlodipine 5 Mg Tab PO 5 mg DAILY LETY Administration Atorvastatin Calcium 10 mg 06/08/20 21:00 06/11/20 21:51 Atorvastatin Calcium 10 Mg Tab PO 10 mg HS LETY Administration Clonazepam 1 mg 06/08/20 01:26 06/11/20 21:51 Clonazepam 1 Mg Tab PO 1 mg BIDPRN PRN Administration anxiety Enoxaparin Sodium 40 mg 06/08/20 09:00 06/12/20 09:38 Enoxaparin Sodium 40 Mg/0.4 Ml Syringe SC 40 mg 0900 LETY Administration Ceftriaxone Sodium 2 gm/ 100 mls @ 200 mls/hr 06/08/20 23:00 06/11/20 21:53 Sodium Chloride IVPB 100 mls 2300 LETY Administration Insulin Human Lispro 0 units 06/08/20 00:39 06/12/20 11:42 Humalog 300 Units/3 Ml Vial SC 4 unit .MILD SLIDING SCALE PRN Administration Mild Correctional Scale Lisinopril 20 mg 06/08/20 09:00 06/12/20 09:38 Lisinopril 20 Mg Tab PO 20 mg DAILY LETY Administration Saccharomyces Boulardii 250 mg 06/09/20 09:00 06/12/20 09:41 Saccharomyces Boulardii 250 Mg Cap PO 250 mg DAILY LETY Administration - Exam General Appearance: NAD Heart: RRR, no gallops Respiratory: no wheezes, no ronchi Gastrointestinal: soft, non-tender, normal bowel sounds Extremities: no cyanosis, no clubbing Neurological: no new deficit Hosp A/P - Plan DVT proph w/SCDs 75-year-old male with diabetes mellitus type 2, hypertension and hyperlipidemia presented to the hospital on 06/08 with generalized weakness with chills. His work-up was consistent with urinary tract infection. Post void residuals were elevated. However patient is able to empty his bladder without any need of catheterization. Left shift is gradually improving. Urine culturebeta- hemolytic Streptococcus. Later, blood culture came back positive forgram- negative edmar (1/2). Started on ceftriaxone on 06/08. CT abdomen negative for obstructive uropathy. Patient was evaluated by infectious disease. #Toxic metabolic encephalopathymultifactorialimproving Continue to monitor #Sepsis due to urinary tract infection with gram negative bacteremia. probably secondary to urinary retention we will continue ceftriaxone 2 g daily. Await final sensitivities from blood culture. Infectious disease following urology evaluation as outpatient. #Obesity with a BMI of 30.3 lifestyle modification emphasized. #Hypertensionbetter controlled Continue lisinopril with amlodipine #Hyperlipidemia continue statins #Diabetes mellitus type 2 with episodes of hypoglycemia this admission-uncontrol led Increase Lantus to 20 units daily and 10 units nightly. Continue sliding scale with Accu-Cheks AC at bedtime (Please note that patient takes 50 units of Lantus daily at home) #Hypokalemia/hypomagnesemia/hyponatremiareplaced Continue to monitor #Chronic anemia probably due to nutritional deficiency outpatient follow-up recommended. #Nonobstructing renal calculi primary care physician to follow #Constipation We will add Senokot-S with MiraLAX as needed #DVT prophylaxis continue Lovenox 40 mg daily #Discharge planning awaiting blood cultures.
[2020-06-12] MEDS ORDERED: Polyethylene Glycol 3350 17 GM Packet PO PRN (15:15)
[2020-06-12] MEDS: Famotidine 20 MG TAB PO SCH (20:30)
[2020-06-12] MEDS: Atorvastatin Calcium 10 MG TAB PO SCH (20:30)
[2020-06-12] MEDS: Senokot S 8.6-50 MG TAB PO SCH (20:31)
[2020-06-12] MEDS: clonazePAM 1 MG TAB PO PRN (20:31)
[2020-06-12] MEDS ORDERED: Insulin Glargine 10 UNITS in Pre-Filled Syringe 1 EACH SC SCH (21:00)
[2020-06-12] MEDS: cefTRIAXone\\ROCEPHIN 2 GM in Sodium Chloride 0.9% 100 ML IVPB SCH (22:55)
[2020-06-13 05:45] LABS: #Eosinphils 0.3 thou/uL (0.0-0.7); #Lymphocytes 2.6 thou/uL (1.20-3.40); #Monocytes 0.6 thou/uL (0.11-0.59); #Neutrophils 2.4 thou/uL (1.40-6.50); %Basophils 0.5 % (0.0-1.0); %Monocytes 10.4 % (0.0-10.0); %Neutrophils 40.2 % (42.0-75.0); Hemoglobin 12.9 g/dL (14.0-18.0); Mean Corpuscular HGB CONC 33.7 g/dL (32.0-36.0); Mean Corpuscular Hemoglobin 28.8 pg (27.0-31.0); Mean Corpuscular Volume 85.7 fL (78.0-98.0); Mean Platelet Volume 8.5 fL (7.4-10.4); Platelet Count 211 thou/uL (130-400); RBC Distribution Width 11.2 % (11.5-14.5); Red Blood Cell (RBC) Count 4.47 mill/uL (4.70-6.10)
[2020-06-13] MEDS: HumaLOG 300 UNITS/3 ML VIAL SC PRN ×2 (06:11→12:07)
[2020-06-13 06:12] LABS: Anion Gap 11 mmol/L (10-20); BUN (Urea Nitrogen) 14 mg/dL (8.4-25.7); CRP (Inflammatory) Less than 0.50 mg/dL (= or < 0.5); Calc. Creatinine Clearance 86 mL/min (70-130); Calcium 8.7 mg/dL (7.8-10.44); Carbon Dioxide 27 mmol/L (23-31); Chloride 103 mmol/L (98-107); Estimated GFR-MDRD Greater than 90; Glucose 185 mg/dL (83-110); Potassium 4.2 mmol/L (3.5-5.1); Sodium 137 mmol/L (136-145)
[2020-06-13] MEDS: Amlodipine 5 MG TAB PO SCH (08:32)
[2020-06-13] MEDS: Senokot S 8.6-50 MG TAB PO SCH (08:33)
[2020-06-13] MEDS: Famotidine 20 MG TAB PO SCH (08:33)
[2020-06-13] MEDS: Lisinopril 20 MG TAB PO SCH (08:33)
[2020-06-13] MEDS: Enoxaparin Sodium 40 MG/0.4 ML SYRINGE SC SCH (08:33)
[2020-06-13] MEDS: Saccharomyces boulardii 250 MG CAP PO SCH (08:33)
[2020-06-13] MEDS ORDERED: Insulin Glargine 20 UNITS in Pre-Filled Syringe 1 EACH SC SCH (09:00)
[2020-06-13 11:26] VITALS: BP 139/70; TEMP 98.5
--- NOTE | 2020-06-13 17:34 | DIS ---
DATE OF ADMISSION: 06/08/2020 DATE OF DISCHARGE: 06/13/2020 DISCHARGE DISPOSITION: Home. FOLLOWUP: 1. Follow up with primary care physician at [facility] in 1 week. 2. Follow up with Infectious Disease, Dr. Valentin in 1 to 2 weeks. 3. Follow up with Urology as outpatient for benign prostatic hypertrophy. DISCHARGE MEDICATIONS: Ciprofloxacin 500 mg b.i.d. for next 10 days. All other medications were left unchanged. The patient was seen and examined on the day of discharge. Denies any new complaints. Vital signs showed temperature 98.5 with pulse rate of 69, respirations of 16, blood pressure of 139/70 with O2 saturation 95% on room air. BRIEF HOSPITAL COURSE: The patient is a 75-year-old male with benign prostatic hypertrophy, presented to the emergency room on 08 June 2020 with generalized weakness along with fever and chills. His workup was consistent with sepsis. His temperature in the emergency room was 102.6 with pulse rate of 98, blood pressure of 133/59 with O2 saturation 98% on room air. He was started on broad-spectrum antibiotics after cultures. His urine culture was positive for beta-hemolytic Streptococcus. His blood culture one of two was positive for gram-negative jennifer. Sensitivities are pending at the time of discharge. His antibiotics have been transitioned to ciprofloxacin p.o. from ceftriaxone. The patient also had episodes of hypoglycemia, for which the insulin dose was reduced to 20 units a day. The patient was advised to continue with 20 to 25 units per day and gradually titrate to his home dose. He has been cleared by Infectious Disease for discharge. SIGNIFICANT LABORATORY DATA: WBC on admission was 10.3 with 81.9% neutrophils. Lactic acid 1.6. FINAL DIAGNOSES: 1. Toxic metabolic encephalopathy on admission, resolved. 2. Severe sepsis secondary to urinary tract infection with gram-negative bacteremia. The patient had urinary retention up to 300 to 350 mL. However, he was able to empty his bladder without any problem after repeated trying. 3. Obesity with a BMI of 30.3. 4. Hypertension. 5. Hyperlipidemia. 6. Diabetes mellitus type 2 with episodes of hypoglycemia at this admission. The patient was advised to reduce Lantus to 20 to 25 units from 50 units daily. 7. Multiple electrolyte abnormalities including hypokalemia, hypomagnesemia, and hyponatremia. 8. Chronic anemia probably due to nutritional deficiency. 9. Nonobstructing renal calculi. 10. Constipation, resolved. The patient understands the above plan of care. Job ID: [id number]
--- NOTE | 2020-06-14 10:32 | EKG ---
Test Reason : WEAKNESS Blood Pressure : / mmHG Vent. Rate : 095 BPM Atrial Rate : 095 BPM P-R Int : 208 ms QRS Dur : 088 ms QT Int : 320 ms P-R-T Axes : 010 -24 035 degrees QTc Int : 402 ms Normal sinus rhythm Possible Anterior infarct , age undetermined Abnormal ECG Confirmed by UNIQUE FREY ([id number]), editor & co founder AVERY MAURICIO ([id number] on 06/14/2020 10:32:13 AM Referred By: Confirmed By:UNIQUE FREY
== END 2020-06-13 14:59 | disposition home or self-care (01) | DRG 871 ==
LOC: ERS 20:43 → T4-A 06-08 00:35
PROVIDERS: ADMIT Internal Medicine; ATTEND Internal Medicine
DX: A41.50 Gram-negative sepsis, unspecified (principal); G92 Toxic encephalopathy; N39.0 Urinary tract infection, site not specified; E87.1 Hypo-osmolality and hyponatremia; E11.40 Type 2 diabetes mellitus with diabetic neuropathy, unspecified; E78.00 Pure hypercholesterolemia, unspecified; F41.9 Anxiety disorder, unspecified; I10 Essential (primary) hypertension; E66.9 Obesity, unspecified; E87.6 Hypokalemia; D53.9 Nutritional anemia, unspecified; K59.00 Constipation, unspecified; N20.0 Calculus of kidney; E83.42 Hypomagnesemia; R33.9 Retention of urine, unspecified; Z79.899 Other long term (current) drug therapy; E11.649 Type 2 diabetes mellitus with hypoglycemia without coma; R65.20 Severe sepsis without septic shock; Z20.828 Contact with and (suspected) exposure to other viral communicable diseases
CPT/HCPCS: 36415; 36416; 71045; 74176; 80048; 80053; 81003; 81015; 83605; 83735; 84443; 85025; 86140; 87040; 87086; 87149; 87635; 93005; 94760; 96365; J0696; J1650; J1815; J3475; J3490; U0003

== ENCOUNTER 2022-02-27 22:14 | Emergency (ER) | payer BC, MEDICARE ==
[2022-02-28 00:55] LABS: #Eosinphils 0.3 thou/uL (0.0-0.7); #Monocytes 0.7 thou/uL (0.11-0.59); #Neutrophils 7.5 thou/uL (1.40-6.50); %Basophils 0.1 % (0.0-1.0); %Lymphocytes 18.9 % (21.0-51.0); %Monocytes 6.2 % (0.0-10.0); %Neutrophils 71.8 % (42.0-75.0); Hemoglobin 12.7 g/dL (14.0-18.0); Mean Corpuscular HGB CONC 33.5 g/dL (32.0-36.0); Mean Corpuscular Hemoglobin 29.5 pg (27.0-31.0); Mean Corpuscular Volume 88.2 fL (78.0-98.0); Mean Platelet Volume 8.6 fL (7.4-10.4); Platelet Count 223 thou/uL (130-400); RBC Distribution Width 11.7 % (11.5-14.5); White Blood Cell (WBC) Count 10.5 thou/uL (4.8-10.8)
[2022-02-28 01:16] LABS: ALT (SGPT) 20 U/L (8-55); AST (SGOT) 19 U/L (5-34); Alkaline Phosphatase 67 U/L (40-110); Anion Gap 13 mmol/L (10-20); BUN (Urea Nitrogen) 17 mg/dL (8.4-25.7); Bilirubin, Total 0.7 mg/dL (0.2-1.2); Calc. Creatinine Clearance 0 mL/min (70-130); Calcium 9.4 mg/dL (7.8-10.44); Carbon Dioxide 26 mmol/L (23-31); Chloride 101 mmol/L (98-107); Estimated GFR 87; Globulin 3.8 g/dL (2.4-3.5); Glucose 131 mg/dL (83-110); Potassium 4.2 mmol/L (3.5-5.1); Protein, Total 7.8 g/dL (5.8-8.1); Sodium 136 mmol/L (136-145)
== END 2022-02-28 01:45 | disposition home or self-care (01) ==
LOC: ERS 22:14
DX: R53.1 Weakness (principal); F41.9 Anxiety disorder, unspecified; E78.00 Pure hypercholesterolemia, unspecified; E11.40 Type 2 diabetes mellitus with diabetic neuropathy, unspecified; I10 Essential (primary) hypertension; Z79.899 Other long term (current) drug therapy; Z79.82 Long term (current) use of aspirin
CPT/HCPCS: 36415; 71045; 80053; 84484; 85025; 93005